=== PATIENT | female | born 1970 | race Caucasian/White ===

== ENCOUNTER 2022-03-31 10:37 | Emergency (ER) | payer BC ==
[2022-03-31 11:57] LABS: Absolute Lymphocytes (CBC) 1.6 K/uL (0.7-4.9); Hematocrit 42.1 % (36.0-45.0); Lymphocytes % 14.2 % (15.3-44.8); MCV 92.4 fL (80-100); MPV 8.2 fL (7.6-11.3); RBC Red Blood Cell Count 4.56 M/uL (3.86-4.86)
--- NOTE | 2022-03-31 12:17 | RAD REPORT ---
EXAM DESCRIPTION: RAD - Chest Single View - 03/31/2022 11:27 am CLINICAL HISTORY: CHEST PAIN COMPARISON: None TECHNIQUE: AP portable chest image was obtained 03/31/2022 11:27 am . FINDINGS: No focal mass or consolidation. No failure or volume overload. Interstitial pattern is mil dly prominent probably the affects of a slightly shallow inspiration and portable technique. Loop rec order overlies the upper chest. Heart and vasculature are normal. No measurable pleural effusion and no pneumothorax. No acute bony abnormality seen. No acute aortic findings suspected. IMPRESSION: No acute cardiopulmonary process.
[2022-03-31 12:19] LABS: Potassium 3.9 mmol/L (3.5-5.1); Troponin High Sensitivity 3.4 pg/mL (<58.9)
--- NOTE | 2022-03-31 14:34 | ER ---
Nurse's Notes [facility] Name: Racquel Branham Age: 52 yrs Sex: Female : 1970 Arrival Date: 03/31/2022 Time: 10:38 Bed 13 Private MD: Srinivas Pena Diagnosis: Bradycardia, unspecified;Dizziness Presentation: 03/31 11:04 Chief complaint: Patient states: states the alarm on iWatch read 42, also states vg1 dizziness and nausea. Coronavirus screen: Vaccine status: Patient reports receiving the 2nd dose of the covid vaccine. Client denies travel out of the [place] in the last 14 days. Ebola Screen: Patient denies exposure to infectious person. Patient denies travel to an Ebola-affected area in the 21 days before illness onset. Initial Sepsis Screen: Does the patient meet any 2 criteria? No. Patient's initial sepsis screen is negative. Does the patient have a suspected source of infection? No. Patient's initial sepsis screen is negative. Risk Assessment: Do you want to hurt yourself or someone else? Patient reports no desire to harm self or others. Onset of symptoms. 11:04 Method Of Arrival: Ambulatory vg1 11:04 Acuity: RICK 3 vg1 Triage Assessment: 11:08 General: Appears uncomfortable, Behavior is calm, cooperative. Pain: Denies pain. vg1 Neuro: Level of Consciousness is awake, alert, obeys commands, Oriented to person, place, time, situation, Reports dizziness. GI: Reports nausea. 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 - Social history:: Smoking status: Patient denies any tobacco usage or history of. Screenin:45 Abuse screen: Denies threats or abuse. Denies injuries from another. Nutritional hb screening: No deficits noted. Tuberculosis screening: No symptoms or risk factors identified. Fall Risk None identified. Assessment: 13:36 General: Appears in no apparent distress. Behavior is calm, cooperative. Pain: Denies hb pain. Neuro: Level of Consciousness is awake, alert, obeys commands, Oriented to person, place, time, situation. Cardiovascular: Patient's skin is warm and dry. Rhythm is sinus bradycardia. Respiratory: Respiratory effort is even, unlabored, Respiratory pattern is regular, symmetrical. 14:41 Reassessment: Patient appears in no apparent distress at this time. Patient and/or hb family updated on plan of care and expected duration. Pain level reassessed. Patient is alert, oriented x 3, equal unlabored respirations, skin warm/dry/pink. Vital Signs: 11:04 BP 158 / 91; Pulse 69; Resp 16; Temp 98.1; Pulse Ox 98% on R/A; Weight 78.93 kg; Height vg1 5 ft. 0 in. (152.40 cm); Pain 0/10; 13:37 BP 156 / 100; Pulse 64; Resp 16; Pulse Ox 97% on R/A; hb 14:41 BP 148 / 88; Pulse 59; Resp 16; Pulse Ox 99% on R/A; hb 11:04 Body Mass Index 33.98 (78.93 kg, 152.40 cm) vg1 ED Course: 10:38 Patient arrived in ED. mr 10:39 Srinivas Pena MD is Private Physician. mr 11:05 Doroteo Woods DO is Attending Physician. ms3 11:08 Triage completed. vg1 11:08 Arm band placed on. EKG completed in triage. Results shown to MD. vg1 11:28 XRAY Chest (1 view) In Process Unspecified. EDMS 11:52 Basic Metabolic Panel Sent. kc6 11:52 CBC with Diff Sent. kc6 11:52 Troponin HS Sent. kc6 11:52 Inserted saline lock: 20 gauge in right antecubital area, using aseptic technique. kc6 Blood collected. 13:32 Betsy Weldon, BRAYAN is Primary Nurse. hb 13:45 Patient has correct armband on for positive identification. hb 14:34 Srinivas Pena MD is Referral Physician. ms3 14:42 No provider procedures requiring assistance completed. IV discontinued, intact, hb bleeding controlled, No redness/swelling at site. Administered Medications: No medications were administered Medication: 14:41 VIS not applicable for this client. hb Outcome: 14:34 Discharge ordered by . ms3 14:42 Discharged to home ambulatory, with significant other. 14:42 Condition: stable 14:42 Discharge instructions given to patient, significant other, Instructed on discharge instructions, follow up and referral plans. medication usage, Demonstrated understanding of instructions, follow-up care, medications. 14:42 Patient left the ED. hb Signatures: Dispatcher [employer] Avis Cope Heather, RN RN Shana Cerrato RN RN vg1 Doroteo Woods DO DO ms3 Mary Crooks kc6
--- NOTE | 2022-03-31 14:35 | EDPHYS ---
Physician Documentation [facility] Name: Racquel Branham Age: 52 yrs Sex: Female : 1970 Arrival Date: 03/31/2022 Time: 10:38 Bed 13 Private MD: Srinivas Pena ED Physician Doroteo Woods HPI: 03/31 11:30 This 52 yrs old Female presents to ER via Ambulatory with complaints of Low Heart rate. ms3 11:30 Patient states during the night her iWatch alerted her to a heart rate of 42. Patient ms3 denies chest pain. Patient states she has had some dizziness. Patient denies nausea or vomiting.. Onset: The symptoms/episode began/occurred last night. Severity of symptoms: At their worst the symptoms were mild in the emergency department the symptoms are unchanged Pain is currently a 0 / 10. 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 - Social history:: Smoking status: Patient denies any tobacco usage or history of. ROS: 11:30 Constitutional: Negative for fever, and chills. Neck: Negative for injury, pain, and ms3 swelling, Cardiovascular: Negative for chest pain, and palpitations. Respiratory: Negative for shortness of breath, cough, wheezing, and pleuritic chest pain, Abdomen/GI: Negative for abdominal pain, nausea, vomiting, diarrhea, and constipation, MS/Extremity: Negative for injury and deformity, Skin: Negative for injury, rash, and discoloration, Hematologic/Lymphatic: Negative for swollen nodes, abnormal bleeding, and unusual bruising. 11:30 All other systems are negative. 11:30 Neuro: Positive for dizziness. ms3 Exam: 11:10 ECG was reviewed by the Attending Physician. ms3 11:30 Constitutional: This is a well developed, well nourished patient who is awake, alert, ms3 and in no acute distress. Head/Face: Normocephalic, atraumatic. Neck: Trachea midline, no cervical lymphadenopathy. Supple, full range of motion without nuchal rigidity, or vertebral point tenderness. No Meningismus. Chest/axilla: Normal chest wall appearance and motion. Nontender with no deformity. Cardiovascular: Regular rate and rhythm with a normal S1 and S2. No gallops, murmurs, or rubs. Normal PMI, no JVD. No pulse deficits. Respiratory: Lungs have equal breath sounds bilaterally, clear to auscultation and percussion. No rales, rhonchi or wheezes noted. No increased work of breathing, no retractions or nasal flaring. Abdomen/GI: Soft, non-tender, with normal bowel sounds. No distension or tympany. No guarding or rebound. No evidence of tenderness throughout. Skin: Warm, dry with normal turgor. Normal color with no rashes, no lesions, and no evidence of cellulitis. MS/ Extremity: Pulses equal, no cyanosis. Neurovascular intact. Full, normal range of motion. Vital Signs: 11:04 BP 158 / 91; Pulse 69; Resp 16; Temp 98.1; Pulse Ox 98% on R/A; Weight 78.93 kg; Height vg1 5 ft. 0 in. (152.40 cm); Pain 0/10; 13:37 BP 156 / 100; Pulse 64; Resp 16; Pulse Ox 97% on R/A; hb 14:41 BP 148 / 88; Pulse 59; Resp 16; Pulse Ox 99% on R/A; hb 11:04 Body Mass Index 33.98 (78.93 kg, 152.40 cm) vg1 MDM: 11:30 Differential Diagnosis Bradycardia vs MT vs ACS. ms3 13:47 Patient medically screened. ms3 14:34 Data reviewed: vital signs, nurses notes, lab test result(s), EKG, radiologic studies. ms3 Counseling: I had a detailed discussion with the patient and/or guardian regarding: the historical points, exam findings, and any diagnostic results supporting the discharge/admit diagnosis, lab results, radiology results, the need for outpatient follow up, to return to the emergency department if symptoms worsen or persist or if there are any questions or concerns that arise at home. ED course: Discussed labs, CXR , PE findings with patient and her . Encouraged observation with patient and her . 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 Patient understands/ agrees with plan. All questions answered. Return precautions given to include worsening symptoms, or any other concerns. Patient is improved, in NAD, non-toxic appearing, ambulatory in ED, speaking full sentences. . 03/31 11:10 Order name: Basic Metabolic Panel; Complete Time: 13:29 ms3 03/31 11:10 Order name: CBC with Diff; Complete Time: 13:29 ms3 03/31 11:10 Order name: Troponin HS; Complete Time: 13:29 ms3 03/31 11:10 Order name: XRAY Chest (1 view); Complete Time: 13:29 ms3 03/31 11:10 Order name: EKG; Complete Time: 11:10 ms3 03/31 11:10 Order name: Cardiac monitoring; Complete Time: 13:36 ms3 03/31 11:10 Order name: EKG - Nurse/Tech; Complete Time: 13:36 ms3 03/31 11:10 Order name: IV Saline Lock; Complete Time: 11:52 ms3 03/31 11:10 Order name: Labs collected and sent; Complete Time: 11:52 ms3 03/31 11:10 Order name: O2 Per Protocol; Complete Time: 13:36 ms3 03/31 11:10 Order name: O2 Sat Monitoring; Complete Time: 13:36 ms3 EC:10 Rate is 69 beats/min. Rhythm is regular. QRS Ava is Normal. Clinical impression: ms3 Normal ECG. Interpreted by me. Reviewed by me. Administered Medications: No medications were administered Disposition Summary: 03/31/22 14:34 Discharge Ordered Location: Home ms3 Condition: Stable ms3 Diagnosis - Bradycardia, unspecified ms3 - Dizziness ms3 Followup: ms3 - With: Srinivas Pena MD - When: 2 - 3 days - Reason: Recheck today's complaints Discharge Instructions: - Discharge Summary Sheet ms3 - Bradycardia, Adult ms3 Forms: - Medication Reconciliation Form ms3 - Thank You Letter ms3 - Antibiotic Education ms3 - Prescription Opioid Use ms3 Signatures: Dispatcher [employer] Shana Olmstead RN RN vg1 Doroteo Woods DO DO ms3 Corrections: (The following items were deleted from the chart) 11:32 11:30 Constitutional: Negative for fever, and chills. Neck: Negative for injury, pain, ms3 and swelling, Cardiovascular: Negative for chest pain, and palpitations. Respiratory: Negative for shortness of breath, cough, wheezing, and pleuritic chest pain, Abdomen/GI: Negative for abdominal pain, nausea, vomiting, diarrhea, and constipation, MS/Extremity: Negative for injury and deformity, Skin: Negative for injury, rash, and discoloration, Neuro: Negative for headache, weakness, numbness, tingling. Hematologic/Lymphatic: Negative for swollen nodes, abnormal bleeding, and unusual bruising, ms3
[2022-03-31 14:48] VITALS: TEMP 98.1
[2022-03-31 14:53] VITALS: BP 148/88; O2SAT 99
--- NOTE | 2022-04-01 08:17 | EKG ---
Test Date: 2022-03-31 Test Time: 11:10:45 Foreign Language Stenographer: ORSANNE MEASUREMENT RESULTS: Intervals: Rate: 69 ME: 144 QRSD: 80 QT: 366 QTc: 392 [place]: P: 71 ME: 144 QRS: 25 T: 31 INTERPRETIVE STATEMENTS: Normal sinus rhythm Normal ECG No previous ECG available for comparison Electronically Signed On 04-01-22 08:12:50 CDT by Jonathan Marcus
== END 2022-03-31 14:42 | disposition home or self-care (01) ==
LOC: ER 10:37
DX: R00.1 Bradycardia, unspecified (principal); I10 Essential (primary) hypertension; E78.00 Pure hypercholesterolemia, unspecified; Z88.0 Allergy status to penicillin
CPT/HCPCS: 36415; 71045; 80048; 84484; 85025; 93005; 99284